=== PATIENT | male | born 1970 | race Caucasian/White ===

== ENCOUNTER 2017-03-09 22:35 | Observation (INO) | payer BC, MEDICAID ==
[~2017-03-09] VITALS: Ht 172.7 cm; Wt 107.0 kg
[2017-03-09] MEDS: NITROGLYCERIN 0.4 MG SL 25 TABS/BTL SL SCH ×2 (04:05→04:31)
[~2017-03-09 22:35] MED LIST: ALUM5LIQ PO; ASPI81TA82 PO; ATOR40TA49 PO; METF500 PO; PERC5TAB12 PO; PROT40TA PO
[2017-03-09 22:38] VITALS: BP 115/73; PULSE 87; RESP 16; TEMP 97.5; O2SAT 98
[2017-03-09] MEDS ORDERED: NITROGLYCERIN 2% OINT 1 GM PACKET TOP ONE (23:00)
[2017-03-09] MEDS ORDERED: SODIUM CHLORIDE 0.9% FLUSH 10 ML FLUSH IVF PRN (23:00)
[2017-03-09 23:05] VITALS: BP 112/75; PULSE 81; RESP 18; O2SAT 98
[2017-03-09] MEDS ORDERED: MAALSUS17 PO (23:09)
[2017-03-09] MEDS ORDERED: METF500T PO (23:09)
[2017-03-09] MEDS ORDERED: BENA25CA4 PO (23:09)
[2017-03-09] MEDS ORDERED: ISOS30TA3 PO (23:09)
[2017-03-09] MEDS ORDERED: PLAV75TA29 PO (23:09)
[2017-03-09] MEDS ORDERED: ROSU40 PO (23:09)
[2017-03-09] MEDS ORDERED: ASPI325T PO (23:09)
[2017-03-09] MEDS ORDERED: CARV6.25 PO (23:09)
[2017-03-09 23:17] LABS: AUTOMATED NEUTROPHIL # 5.5 TH/MM3 (1.8-7.7); BASOPHIL # 0.1 TH/MM3 (0-0.2); BASOPHIL % 1.3 % (0.0-2.0); EOSINOPHIL # 0.4 TH/MM3 (0-0.4); EOSINOPHIL % 3.9 % (0.0-4.0); HEMATOCRIT 46.6 % (39.0-51.0); HEMO FLAGS DIFF FINAL; LYMPH % 29.6 % (9.0-44.0); LYMPHOCYTE # 2.8 TH/MM3 (1.0-4.8); MEAN CELL VOLUME 85.2 FL (80.0-100.0); MEAN CORPUSCULAR HEMOGLOBIN 28.2 PG (27.0-34.0); MEAN CORPUSCULAR HGB CONC 33.1 % (32.0-36.0); MONO % 6.7 % (0.0-8.0); NEUT % 58.5 % (16.0-70.0); PLATELET COUNT 205 TH/MM3 (150-450); RED BLOOD COUNT 5.47 MIL/MM3 (4.50-5.90); RED CELL DISTRIBUTION WIDTH 13.6 % (11.6-17.2); WHITE BLOOD COUNT 9.4 TH/MM3 (4.0-11.0)
--- NOTE | 2017-03-09 23:25 | RADRPT ---
EXAM DATE/TIME: 03/09/2017 23:19 [facility] COMPARISON: CHEST SINGLE AP, October 02, 2015, 16:10. INDICATIONS : Chest pain. MEDICAL HISTORY : None. SURGICAL HISTORY : Stent placement. Defibrillator. ENCOUNTER: Initial ACUITY: 3 days PAIN SCORE: 0/10 LOCATION: Bilateral chest FINDINGS: There is slight cardiomegaly and perivascular pulmonary edema. Focal consolidation is not seen. Left subclavian pacer wire is present with tip in the right ventricle. CONCLUSION: Slight CHF. K. Fabiano Rae MD on March 09, 2017 at 23:22 Board Certified Radiologist. This report was verified electronically.
[2017-03-09] MEDS ORDERED: PANTOPRAZOLE SODIUM 40 MG VIAL IV PUSH ONE (23:30)
--- NOTE | 2017-03-09 23:38 | PD ---
HPI Chief Complaint: Chest Pain Time Seen by Provider: 22:58 Travel History International Travel<30 days: No Contact w/Intl Traveler<30days: No Traveled to known affect area: No History of Present Illness HPI The patient is a 46 year old male who presents to the [facility] emergency department with a history of indigestion like chest pain that he reports began Friday and lasted for approximate 4-5 minutes. The patient reports that the pain recurred on Friday intermittently and then 4 times on today. He reports that each time the chest pain occurs he checks his blood pressure and it is elevated compared to his normal blood pressure. He reports that it is been as high as 129/88. He reports that the pain is in the center of the chest, sometimes on the left side of the chest. He reports that the pain continues to be a burning sensation associated with tightening. He reports that he has had shortness of breath associated with this. He denies having any diaphoresis. He denies having any radiation of pain up into his jaw or arms. He reports that his last cardiac catheterization was in 2014. He reports that Dr. Walker recommended a stent placement, however it was not done at that time. The patient reports that his last cardiac stress test was done 1 year ago. The patient denies any recent fevers, cough, congestion, neck pain, abdominal pain, vomiting, diarrhea, urinary symptoms, or neurologic symptoms. The patient reports that he last moved his bowels earlier today. He denies having any blood in his stool or black or tarry stools. He reports that he has been taking Maalox and Benadryl for his indigestion discomfort, however he reports it has not been helping. The patient reports that his chest pain is alleviated with rest. FOR[facility]LY [facility] Past Medical History Narrative Medical The patient's past medical history is significant for coronary artery disease with prior stent placement, ischemic cardiomyopathy with AICD placement in 2013 , dyslipidemia, hypertension, acid reflux, diabetes mellitus. Hx Anticoagulant Therapy: Yes Arthritis: Yes (HANDS) Blood Disorders: No Heart Rhythm Problems: Yes Cancer: No Cardiac Catheterization: Yes (X2) Cardiovascular Problems: Yes (ID 11/12/13 CARDIAC STENTS/DEFIBRILATOR-PACEMAKER/ CHF) High Cholesterol: Yes Chest Pain: Yes Congestive Heart Failure: Yes Diabetes: Yes (TYPE 2) Patient Takes Glucophage: Yes (03/09/2017 0900) Endocrine: No Gastrointestinal Disorders: Yes (GERD/CONSTIPATION) Genitourinary: No Hepatitis: No Hiatal Hernia: Yes Hypertension: Yes Immune Disorder: No Implanted Vascular Access Dvce: Yes (pacer/defibrillator) Musculoskeletal: Yes (RA) Neurologic: No Psychiatric: No Reproductive: No Respiratory: Yes (SLEEP APNEA-CPAP) Myocardial Infarction: Yes Pneumonia: Yes Sleep Apnea: Yes Thyroid Disease: No Tetanus Vaccination: Unknown Influenza Vaccination: No Past Surgical History Narrative Surgical The patient's past surgical history is significant for an AICD placement, cardiac catheterization with stent placement. Abdominal Surgery: No AICD: Yes (06/27/2014) Body Medical Devices: STENTS X 2 Cardiac Surgery: Yes (PACEMAKER/AICD PLACEMENT, CARDIAC CATHERIZATION X 3 WITH STENTS) Coronary Artery Bypass Graft: No Coronary Stent: Yes (X 2) Ear Surgery: No Endocrine Surgery: No Eye Surgery: No Genitourinary Surgery: No Gynecologic Surgery: No Joint Replacement: No Neurologic Surgery: Yes (SPINAL TAP-SPINAL FLUID LEAK) Oral Surgery: Yes (TEETH EXTRACTIONS) Pacemaker: Yes (BIOTRONIC, DUAL) Thoracic Surgery: No Other Surgery: Yes Family History Family Myocardial Infarction: Yes (FATHER) Social History Alcohol Use: Yes (occassional) Tobacco Use: No (quit September 29, 2016) Substance Use: No Allergies-Medications (Allergen,Severity, Reaction): Coded Allergies: No Known Allergies (Unverified , 11/28/15) Reported Meds & Prescriptions Reported Meds & Active Scripts Active Reported Aspirin 325 Mg Tab 325 Mg PO DAILY Benadryl Allergy (Diphenhydramine HCl) 25 Mg Cap 1 Tab PO DAILY Maalox Maximum Strength Susp (Mag Hydrox/Aluminum Hyd/Simeth) 355 Ml Oral.susp 15 Ml PO QID Isosorbide Mononitrate ER (Isosorbide Mononitrate) 30 Mg Linda 1 Tab PO DAILY Coreg (Carvedilol) 6.25 Mg Tab 6.25 Mg PO BID Crestor (Rosuvastatin Calcium) 40 Mg Tab 40 Mg PO DAILY Metformin (Metformin HCl) 500 Mg Tab 500 Mg PO DAILY With a meal Review of Systems General / Constitutional: No: Fever Eyes: No: Visual changes HENT: No: Headaches Cardiovascular: Positive: Chest Pain or Discomfort, Dyspnea on exertion, No: Diaphoresis Respiratory: Positive: Shortness of Breath Gastrointestinal: Positive: Indigestion, No: Nausea, Vomiting, Diarrhea, Abdominal Pain Genitourinary: No: Dysuria Musculoskeletal: No: Pain Skin: No Rash Neurologic: No: Weakness Psychiatric: No: Depression Endocrine: No: Polydipsia Hematologic/Lymphatic: No: Easy Bruising Physical Exam Narrative General: The patient is well-developed well-nourished male in no acute distress. Head and Neck exam: Head is normocephalic atraumatic. Eyes: EOMI, pupils are equal round and reactive to light. Nose: Midline septum with pink mucous membranes Mouth: Dentition unremarkable. Moist mucus membranes. Posterior oropharynx is not erythematous. No tonsillar hypertrophy. Uvula midline. Airway patent. Neck: No palpable lymphadenopathy. No nuchal rigidity. No thyromegaly. Cardiovascular: Regular rate and rhythm without murmurs, gallops, or rubs. No pulse deficit to the extremities and simultaneous auscultation and palpation of his radial artery. Lungs: Clear to auscultation bilaterally. No wheezes, rhonchi, or rales. Abdomen: Soft, without tenderness to palpation in all 4 quadrants of the abdomen. No guarding, rebound, or rigidity. Normal bowel sounds are audible. No tenderness on palpation of McBurney's point. Extremities: No clubbing, cyanosis, or edema. 2+ pulses in all 4 extremities. No calf tenderness on palpation. Back: No costovertebral angle tenderness to palpation. Neurologic Exam: Grossly nonfocal. Skin Exam: No rash noted. Intact skin that is warm and dry. Data Data Last Documented VS Vital Signs Date Time Temp Pulse Resp B/P Pulse Ox O2 Delivery O2 Flow Rate FiO2 03/10/17 00:36 72 18 95/61 95 Room Air 03/09/17 22:38 97.5 Orders Electrocardiogram (03/09/17 22:58) B-Type Natriuretic Peptide (03/09/17 22:58) Ckmb (Isoenzyme) Profile (03/09/17 22:58) Complete Blood Count With Diff (03/09/17 22:58) Comprehensive Metabolic Panel (03/09/17 22:58) Magnesium (Mg) (03/09/17 22:58) Prothrombin Time / Inr (Pt) (03/09/17 22:58) Act Partial Throm Time (Ptt) (03/09/17 22:58) Troponin I (03/09/17 22:58) Lipase (03/09/17 22:58) Chest, Single Ap (03/09/17 22:58) Ecg Monitoring (03/09/17 22:58) Bilateral Bp Monitoring (03/09/17 22:58) Iv Access Insert/Monitor (03/09/17 22:58) Oximetry (03/09/17 22:58) Oxygen Administration (03/09/17 22:58) Nitroglycerin 2% Oint (Nitroglycerin 2% (03/09/17 23:00) Sodium Chloride 0.9% Flush (Ns Flush) (03/09/17 23:00) Nitroglycerin Sl (Nitrostat Sl) (03/09/17 23:00) Pantoprazole Inj (Protonix Inj) (03/09/17 23:30) Admit Order (Ed Use Only) (03/10/17 01:33) Labs Laboratory Tests Test 03/09/17 23:04 White Blood Count 9.4 TH/MM3 Red Blood Count 5.47 MIL/MM3 Hemoglobin 15.4 GM/DL Hematocrit 46.6 % Mean Corpuscular Volume 85.2 FL Mean Corpuscular Hemoglobin 28.2 PG Mean Corpuscular Hemoglobin 33.1 % Concent Red Cell Distribution Width 13.6 % Platelet Count 205 TH/MM3 Mean Platelet Volume 8.5 FL Neutrophils (%) (Auto) 58.5 % Lymphocytes (%) (Auto) 29.6 % Monocytes (%) (Auto) 6.7 % Eosinophils (%) (Auto) 3.9 % Basophils (%) (Auto) 1.3 % Neutrophils # (Auto) 5.5 TH/MM3 Lymphocytes # (Auto) 2.8 TH/MM3 Monocytes # (Auto) 0.6 TH/MM3 Eosinophils # (Auto) 0.4 TH/MM3 Basophils # (Auto) 0.1 TH/MM3 CBC Comment DIFF FINAL Differential Comment Prothrombin Time 10.6 SEC Prothromb Time International 1.0 RATIO Ratio Activated Partial 26.1 SEC Thromboplast Time B-Type Natriuretic Peptide 295 PG/ML Sodium Level 140 MEQ/L Potassium Level 4.0 MEQ/L Chloride Level 103 MEQ/L Carbon Dioxide Level 28.6 MEQ/L Anion Gap 8 MEQ/L Blood Urea Nitrogen 14 MG/DL Creatinine 1.03 MG/DL Estimat Glomerular Filtration 77 ML/MIN Rate Random Glucose 101 MG/DL Calcium Level 8.8 MG/DL Magnesium Level 2.1 MG/DL Total Bilirubin 0.4 MG/DL Aspartate Amino Transf 18 U/L (AST/SGOT) Alanine Aminotransferase 27 U/L (ALT/SGPT) Alkaline Phosphatase 89 U/L Total Creatine Kinase 70 U/L Troponin I LESS THAN 0.02 NG/ML Total Protein 8.0 GM/DL Albumin 3.9 GM/DL Lipase 185 U/L MDM Medical Decision Making Medical Screen Exam Complete: Yes Emergency Medical Condition: Yes Medical Record Reviewed: Yes Interpretation(s) Last Impressions Myocardial Perfusion Scan Nuc Med 03/10/17 0000 Signed Impressions: Service Date/Time: Friday, March 10, 2017 10:39 - CONCLUSION: 1. Large area of infarct involving the entire septum and anterior wall. No reversible perfusion defect identified. Severely diminished ejection fraction at 19%%. RISK CATEGORY: High (>3%% Annual Mortality Rate) Anuj Garcia MD Chest X-Ray 03/09/17 2258 Signed Impressions: Service Date/Time: Thursday, March 09, 2017 23:19 - CONCLUSION: Slight CHF. K. Fabiano Rae MD Differential Diagnosis Acute coronary syndrome, versus acid reflux, versus pneumothorax, versus pneumonia, versus pleurisy Narrative Course During the course of the patients emergency department visit, the patients history, examination, and differential diagnosis were reviewed with the patient. The patient had IV access obtained and blood work sent for analysis. The patient was placed on a air sampling and monitoring with oximetry and blood pressure monitoring. An EKG was done on arrival. The patient's EKG shows a sinus rhythm heart rate of 81, incomplete right bundle branch block, left anterior fascicular block, no acute ST segment elevation or depression. QRS duration is 117 ms, QTC 421 ms. The patient was initially provided nitroglycerin sublingual every 5 minutes 3 when necessary chest pain, nitroglycerin 1 inch to the chest wall, Protonix 40 mg IV. The patient reports that he took at least 2 adult aspirin earlier today , therefore additional aspirin was not provided at this time. The patients laboratory studies were reviewed and remarkable for a CBC that is within normal limits. CMP is unremarkable, CPK 70, troponin I less than 0.02, BNP 295, lipase 185, PT PTT within normal limits. Radiology studies were reviewed and remarkable for a chest x-ray that shows no acute abnormality. The patients results were discussed with the patient, including the plan of care. I explained that further testing and/ or monitoring is indicated based on the patients history, examination, and/ or laboratory findings. Therefore, I recommended admission for additional evaluation. The patient expressed understanding and was agreeable with this plan. The patient was admitted to the hospital in stable condition and sent to a bed under the care of to the chest pain center. Diagnosis Primary Impression: Chest pain, rule out acute myocardial infarction Admitting Information Admitting Physician Requests: Observation Erin Paez MD Mar 09, 2017 23:38
[2017-03-09 23:39] LABS: APTT (PATIENT) 26.1 SEC (24.3-30.1); PROTHROMBIN TIME - PATIENT 10.6 SEC (9.8-11.6)
[2017-03-09 23:45] LABS: ALT (GPT) 27 U/L (12-78); ANION GAP 8 MEQ/L (5-15); AST (GOT) 18 U/L (15-37); BICARBONATE 28.6 MEQ/L (21.0-32.0); BLOOD UREA NITROGEN 14 MG/DL (7-18); CHLORIDE 103 MEQ/L (98-107); GLOMERULAR FILTRATION RATE 77 ML/MIN (>89); MAGNESIUM 2.1 MG/DL (1.5-2.5); SODIUM (NA) 140 MEQ/L (136-145)
[2017-03-09 23:49] LABS: ALKALINE PHOSPHATASE 89 U/L (45-117); TOTAL BILIRUBIN ADULT 0.4 MG/DL (0.2-1.0)
[2017-03-10] VITALS (8 sets, daily range): BP systolic 86–102; BP diastolic 55–70; PULSE 64–147; RESP 18–20; TEMP 97.6; O2SAT 92–95
[2017-03-10 00:06] LABS: CREATINE KINASE 70 U/L (39-308)
[2017-03-10] MEDS ORDERED: ACETAMINOPHEN 500 MG CPLT PO PRN (02:30)
[2017-03-10] MEDS ORDERED: SODIUM CHLORIDE 0.9% FLUSH 10 ML FLUSH IV FLUSH PRN (02:30)
[2017-03-10 06:11] LABS: CREATINE KINASE 59 U/L (39-308)
[2017-03-10] MEDS ORDERED: PANTOPRAZOLE SOD 40 MG DELAYED RELEASE TAB PO SCH (09:00)
[2017-03-10] MEDS ORDERED: SODIUM CHLORIDE 0.9% FLUSH 10 ML FLUSH IV FLUSH SCH (09:00)
[2017-03-10] MEDS ORDERED: REGADENOSON INJ 0.4 MG/5 ML SYR ONE (11:06)
--- NOTE | 2017-03-10 11:21 | HHI.HP ---
[facility] Primary Care Physician Lance Ortiz MD Chief Complaint Chest pain History of Present Illness This is a 46-year-old male that presents to the ED with history of ischemic cardiomyopathy, CAD having 2 stents. He presents complaining of 4 days of intermittent chest discomfort lasting anywhere from 5-10 minutes. The discomfort can occur with walking and will improve after he stops activity within a few minutes. He at times a short of breath. Denies diaphoresis or nausea. Patient states that he had not been taking his medications but restarted taking them 4 days ago. He states that he last saw his construction project engineer about 3 or 4 months ago. Thinks his last stress test was over a year ago. Upon review records last heart catheterization was in 2013 and a which time there was 20/30 percent in-stent restenosis of the proximal LAD stent. The RCA stent was patent. PdA had 99% blockage which is unchanged from prior. He had an EF of 10-20% and was set up to have a fibular placed. An AICD was implanted May 2014 Review of Systems General: Patient denies fevers, chills recent, and recent travel HEENT: Patient denies headache, sore throat, difficulty swallowing. Cardiovascular: Has the chest discomfort as mentioned above. Denies sensation of heart beating rapidly or irregularly. No syncope. Denies diaphoresis. Respiratory: A time short of breath. Denies inspirational chest discomfort. Denies coughing wheezing or hemoptysis. GI: Patient denies nausea, vomiting, diarrhea, abdominal pain, bloody stools. Musculoskeletal: Patient denies joint pain or edema. Denies calf pain or edema. Neurovascular: Patient denies numbness, tingling, weakness in extremities. Denies headache. Endocrine: Denies polyuria and polydipsia. Hematologic: Denies easy bruising. Skin: Denies rash or itching. Past Family Social History Allergies: Coded Allergies: No Known Allergies (Unverified , 11/28/15) Past Medical History Ischemic cardiomyopathy, CAD with stents, hyperlipidemia, hypertension, diabetes , and GERD. Denies diabetes. Past Surgical History Heart catheterizations with interventions as well as having a heart catheter is a 14 without an intervention. AICD implanted May 2014. Reported Medications Reported Meds & Active Scripts Active Reported Aspirin 325 Mg Tab 325 Mg PO DAILY Benadryl Allergy (Diphenhydramine HCl) 25 Mg Cap 1 Tab PO DAILY Maalox Maximum Strength Susp (Mag Hydrox/Aluminum Hyd/Simeth) 355 Ml Oral.susp 15 Ml PO QID Isosorbide Mononitrate ER (Isosorbide Mononitrate) 30 Mg Linda 1 Tab PO DAILY Coreg (Carvedilol) 6.25 Mg Tab 6.25 Mg PO BID Crestor (Rosuvastatin Calcium) 40 Mg Tab 40 Mg PO DAILY Metformin (Metformin HCl) 500 Mg Tab 500 Mg PO DAILY With a meal Plavix (Clopidogrel Bisulfate) 75 Mg Tab 75 Mg PO DAILY Active Ordered Medications Current Medications Medications (Trade) Dose Ordered Sig/Denice Route Start Time Stop Time Status Last Admin (NS Flush) 2 ml UNSCH PRN IVF 03/09/17 23:00 (NS Flush) 2 ml UNSCH PRN IV FLUSH 03/10/17 02:30 (NS Flush) 2 ml BID IV FLUSH 03/10/17 09:00 (Tylenol) 500 mg Q4H PRN PO 03/10/17 02:30 (Protonix) 40 mg DAILY PO 03/10/17 09:00 Family History There is family history of CAD. Social History Patient quit smoking cigarettes 5 months ago. Has occasional alcohol. Denies illicit drugs. Physical Exam Vital Signs Vital Signs Date Time Temp Pulse Resp B/P Pulse Ox O2 Delivery O2 Flow Rate FiO2 03/10/17 07:58 72 03/10/17 07:54 97.6 147 20 86/55 93 03/10/17 04:02 95 Nasal Cannula 2.00 03/10/17 03:01 64 18 96/62 95 Nasal Cannula 2 03/10/17 01:53 69 18 93/62 95 Room Air 03/10/17 00:36 72 18 95/61 95 Room Air 03/10/17 00:14 76 18 102/70 95 Room Air 03/09/17 23:05 81 18 112/75 98 Room Air 03/09/17 22:59 98 Room Air 03/09/17 22:38 97.5 87 16 115/73 98 Room Air Physical Exam GENERAL: This is a well-nourished, well-developed patient, in no apparent distress. Patient speaks in clear complete sentences. Patient is pleasant. HEENT: Head is atraumatic and normocephalic. Neck is supple without lymphadenopathy and trachea is midline. No JVD or carotid bruits. CARDIOVASCULAR: Regular rate and rhythm without murmurs, gallops, or rubs. RESPIRATORY: Clear to auscultation. Breath sounds equal bilaterally. No wheezes , rales, or rhonchi. Chest wall is nontender. No use of accessory muscles. GASTROINTESTINAL: Abdomen is nontender, nondistended. Abdomen soft. No obvious pulsatile mass or bruit. No CVA tenderness. Strong femoral pulses bilaterally. Normal bowel sounds in all quadrants. MUSCULOSKELETAL: Patient is moving upper and lower extremities freely. No calf tenderness or edema, no Homans sign. Strong pulses in upper and lower extremities. NEUROLOGICAL: Patient is alert and oriented. Cranial nerves 2-12 are grossly intact. No focal deficits and speech is clear. SKIN: No rash and turgor is normal. Laboratory Laboratory Tests Test 03/09/17 03/10/17 03/10/17 23:04 03:00 05:30 White Blood Count 9.4 Red Blood Count 5.47 Hemoglobin 15.4 Hematocrit 46.6 Mean Corpuscular Volume 85.2 Mean Corpuscular Hemoglobin 28.2 Mean Corpuscular Hemoglobin 33.1 Concent Red Cell Distribution Width 13.6 Platelet Count 205 Mean Platelet Volume 8.5 Neutrophils (%) (Auto) 58.5 Lymphocytes (%) (Auto) 29.6 Monocytes (%) (Auto) 6.7 Eosinophils (%) (Auto) 3.9 Basophils (%) (Auto) 1.3 Neutrophils # (Auto) 5.5 Lymphocytes # (Auto) 2.8 Monocytes # (Auto) 0.6 Eosinophils # (Auto) 0.4 Basophils # (Auto) 0.1 CBC Comment DIFF FINAL Differential Comment Prothrombin Time 10.6 Prothromb Time International 1.0 Ratio Activated Partial 26.1 Thromboplast Time B-Type Natriuretic Peptide 295 Sodium Level 140 Potassium Level 4.0 Chloride Level 103 Carbon Dioxide Level 28.6 Anion Gap 8 Blood Urea Nitrogen 14 Creatinine 1.03 Estimat Glomerular Filtration 77 Rate Random Glucose 101 Calcium Level 8.8 Magnesium Level 2.1 Total Bilirubin 0.4 Aspartate Amino Transf 18 (AST/SGOT) Alanine Aminotransferase 27 (ALT/SGPT) Alkaline Phosphatase 89 Total Creatine Kinase 70 56 59 Troponin I LESS THAN 0.02 0.02 LESS THAN 0.02 Total Protein 8.0 Albumin 3.9 Lipase 185 Result Diagram: 03/09/17 2304 03/09/17 2304 Imaging Last 24 hours Impressions Chest X-Ray 03/09/17 3223 Signed Impressions: Service Date/Time: Thursday, March 09, 2017 23:19 - CONCLUSION: Slight CHF. Danny Rae MD Course EKGs have sinus rhythm without significant ST segment depressions or elevations. Assessment and Plan Assessment and Plan * Chest pain: Patient has had serial cardiac enzymes and EKGs for ruling out purposes. He was seen by Dr. Fredy Song of cardiology in the chest pain center and Dr. Song also spoke with Dr. Walker. Patient will have a chemical stress test. Further plan pending the results of his chemical stress test. Patient has been noncompliant with his medications, his medications will be restarted. * Ischemic cardiomyopathy: Patient has an AICD. He should follow-up with his construction project engineer. * Hypertension: Continue current medication. * CAD: This will be reassessed for stress testing. Will resume his medications. * Hyperlipidemia: Continue current medication. Patient is stable this time. He is agreeable to this plan. Marc Victoria Mar 10, 2017 11:21
[2017-03-10] MEDS ORDERED: GLUCAGON 1 MG/ML VIAL IM/SQ PRN (11:30)
[2017-03-10] MEDS ORDERED: DEXTROSE 50% IN WATER 50 ML VIAL(D50) IV PRN (11:30)
[2017-03-10] MEDS ORDERED: AMINOPHYLLINE INJ 250 MG/10 ML VIAL ONE (11:51)
[2017-03-10] MEDS ORDERED: CARVEDILOL 6.25 MG TAB PO SCH (12:00)
[2017-03-10] MEDS ORDERED: ISOSORBIDE MONONITRATE 30 MG TAB PO SCH (12:00)
[2017-03-10] MEDS ORDERED: ASPIRIN 325 MG TAB PO SCH (12:00)
[2017-03-10] MEDS ORDERED: ATORVASTATIN 80 MG TAB PO SCH (13:00)
--- NOTE | 2017-03-10 13:21 | RADRPT ---
EXAM DATE/TIME: 03/10/2017 10:39 [place] Corrected on: March 18, 2017; Added Pain scale score [facility] COMPARISON: No previous studies available for comparison. INDICATIONS : Angina. DOSE: 35 mCi Tc99m Myoview at stress. 11 mCi Tc99m Myoview at rest. 0.4 mg Lexiscan STRESS SYMPTOMS: Dyspnea, chest pain, nausea, headache and neck pain. MEDICATIONS: 1.) 100 mg Aminophylline IV EJECTION FRACTION: 19% MEDICAL HISTORY : Hypercholesterolemia. Hypertension. SURGICAL HISTORY : Coronary artery stent. ENCOUNTER: Initial ACUITY: 1 day PAIN SCALE: 2/10 LOCATION: chest TECHNIQUE: The patient underwent pharmacologic stress with infusion of prescribed dose. Continuous ECG tracing was monitored during stress. Gated SPECT imaging was performed after stress and conventional SPECT i maging was performed at rest. The examination was performed on a SPECT/CT scanner, both attenuation and non-corrected datasets were reviewed. FINDINGS: DISTRIBUTION: The maximum perfused segment at stress is in the lateral wall. PERFUSION STUDY: The exam demonstrates a large, severe, fixed perfusion defect involving the septum and anterior wall. No reversible perfusion defect is identified. The ventricular cavity is dilated. GATED STUDY: The exam demonstrates a severe global hypokinesis. CONCLUSION: 1. Large area of infarct involving the entire septum and anterior wall. No reversible perfusion defec t identified. Severely diminished ejection fraction at 19%. RISK CATEGORY: High (>3% Annual Mortality Rate) Anuj Garcia MD on March 10, 2017 at 13:17 Board Certified Radiologist. This report was verified electronically.
--- NOTE | 2017-03-10 14:00 | HHI.DCPOC ---
Discharge Care Plan Diagnosis: (1) Chest pain (2) Ischemic cardiomyopathy (3) Diabetes mellitus, type II (4) CAD (coronary artery disease) (5) H/O heart artery stent (6) GERD (gastroesophageal reflux disease) (7) Hyperlipidemia (8) Hypertension Goals to Promote Your Health * To prevent worsening of your condition and complications * To maintain your health at the optimal level Directions to Meet Your Goals Take your medications as prescribed Follow your dietary instruction Follow activity as directed Keep your appointments as scheduled Take your immunizations and boosters as scheduled If your symptoms worsen call your PCP, if no PCP go to Urgent Care Center or Emergency Room Smoking is Dangerous to Your Health. Avoid second hand smoke Call the 24-hour hour crisis hotline for domestic abuse at Marc Victoria Mar 10, 2017 14:00
--- NOTE | 2017-03-10 15:29 | EKG ---
Date Performed: 03/10/2017 Time Performed: 05:32:33 PTAGE: 46 years EKG: Sinus rhythm WITH FIRST DEGREE AV BLOCK MARKED LEFT AXIS DEVIATION ABNORMAL ECG PREVIOUS TRACING : 03/09/2017 22.58 Since previous tracing, no significant change noted DOCTOR: Fredy Song Interpretating Date/Time 03/10/2017 15:29:05
--- NOTE | 2017-03-10 15:32 | EKG ---
Date Performed: 03/10/2017 Time Performed: 03:00:17 PTAGE: 46 years EKG: Sinus rhythm LEFT ANTERIOR FASCICULAR BLOCK ABNORMAL ECG PREVIOUS TRACING : 03/09/2017 22.58 Since previous tracing, no significant change noted DOCTOR: Fredy Song Interpretating Date/Time 03/10/2017 15:30:23
--- NOTE | 2017-03-10 15:34 | EKG ---
Date Performed: 03/09/2017 Time Performed: 22:58:17 PTAGE: 46 years EKG: Sinus rhythm POSSIBLE LEFT ATRIAL ENLARGEMENT PATTERN CONSISTENT WITH PULMONARY DISEASE INCOMPLETE RIGHT BUNDLE B RANCH BLOCK LEFT ANTERIOR FASCICULAR BLOCK SEPTAL MYOCARDIAL INFARCTION ABNORMAL ECG PREVIOUS TRACING : 10/03/2015 00.11 Since previous tracing, no significant change noted DOCTOR: Fredy Song Interpretating Date/Time 03/10/2017 15:32:13
--- NOTE | 2017-03-10 15:35 | TR ---
Date Performed: 03/10/2017 Time Performed: 11:28:17 DOCTOR: Fredy Song DRUG LIST: CLINICAL HISTORY: REASON FOR TEST: CHEST PAIN REASON FOR ENDING: OBSERVATION: CONCLUSION: Lexiscan stress test was performed under standard four minute protocol. Radionuclid e was injected one minute prior to ending the test. No electrocardiographic abormalities were present to suggest ischemia. Nuclear imaging and interpretation are pending. COMMENTS:
[2017-03-10] MEDS ORDERED: INSULIN ASPART SUPPLEMENTAL SCALE SQ SCH (16:00)
== END 2017-03-10 14:53 | disposition home or self-care (01) ==
LOC: NEPE 22:35 → NEDA 03-10 01:34 → NEPHCDU 03-10 04:34
PROVIDERS: ADMIT Family Medicine; ATTEND Family Medicine
DX: R07.89 Other chest pain (principal); I25.5 Ischemic cardiomyopathy; I25.10 Atherosclerotic heart disease of native coronary artery without angina pectoris; I45.2 Bifascicular block; E78.5 Hyperlipidemia, unspecified; E11.9 Type 2 diabetes mellitus without complications; E78.00 Pure hypercholesterolemia, unspecified; I11.0 Hypertensive heart disease with heart failure; I50.9 Heart failure, unspecified; I25.2 Old myocardial infarction; K21.9 Gastro-esophageal reflux disease without esophagitis; M19.049 Primary osteoarthritis, unspecified hand; M06.9 Rheumatoid arthritis, unspecified; G47.30 Sleep apnea, unspecified; Z87.891 Personal history of nicotine dependence; Z95.810 Presence of automatic (implantable) cardiac defibrillator; Z95.5 Presence of coronary angioplasty implant and graft; Z79.84 Long term (current) use of oral hypoglycemic drugs; Z95.0 Presence of cardiac pacemaker; Z79.899 Other long term (current) drug therapy; Z79.82 Long term (current) use of aspirin; Z79.01 Long term (current) use of anticoagulants; Z91.14 Patient's other noncompliance with medication regimen
CPT/HCPCS: 71010; 78452; 80053; 82550; 83690; 83735; 83880; 84484; 85025; 85610; 85730; 93005; 93017; 96374; 99285; A9502; C9113; G0378; J0280; J2785

== ENCOUNTER 2018-03-01 18:40 | Emergency (ER) | payer MEDICAID, OTHER ==
[~2018-03-01] VITALS: Ht 193 cm; Wt 113.5 kg
[~2018-03-01 18:40] MED LIST changes: -ALUM5LIQ PO; +ASPI-183 PO; -ASPI81TA82 PO; -ATOR40TA49 PO; +BENA25CA4 PO; +CARV6.25 PO; +ISOS30TA3 PO; +MAALSUS17 PO; -METF500 PO; +METF500T PO; -PERC5TAB12 PO; -PROT40TA PO; +ROSU40 PO
[2018-03-01 19:10] VITALS: BP 106/61; PULSE 95; RESP 18; TEMP 97.6; O2SAT 99
--- NOTE | 2018-03-01 19:22 | PD ---
HPI Chief Complaint: Musculoskeletal Complaint Time Seen by Provider: 19:21 Travel History International Travel<30 days: No Contact w/Intl Traveler<30days: No Traveled to known affect area: No History of Present Illness HPI 47-year-old male came to the emergency room with history of left leg back of his knee pain and swelling. Patient has history of varicose veins on for past 1 week he has noticed pain and swelling in his varicose veins. His primary care asked him to come to the emergency room to get an ultrasound to rule out DVT. Patient says he cannot take any other pain medication except for aspirin and today he took 6 aspirin full-strength for pain relief. Vital signs were relatively stable. No history of shortness of breath or chest pain. Pain has been there persistently but gets worse upon touching the area. No radiation of the pain. PFSH Past Medical History Narrative Medical List of his past medical, surgical, social and family history is reviewed from the nursing note. Hx Anticoagulant Therapy: Yes Arthritis: Yes (HANDS) Blood Disorders: No Heart Rhythm Problems: Yes Cancer: No Cardiac Catheterization: Yes (X2) Cardiovascular Problems: Yes (pacemaker/Defib, OR, CHF, CAD) High Cholesterol: Yes Chest Pain: Yes Congestive Heart Failure: Yes Diabetes: Yes (Metformin) Patient Takes Glucophage: Yes Endocrine: No Gastrointestinal Disorders: Yes (GERD/CONSTIPATION) Genitourinary: No Hepatitis: No Hiatal Hernia: Yes Hypertension: Yes Immune Disorder: No Implanted Vascular Access Dvce: Yes (pacer/defibrillator) Musculoskeletal: Yes (RA) Neurologic: No Psychiatric: No Reproductive: No Respiratory: Yes (SLEEP APNEA-CPAP) Myocardial Infarction: Yes Pneumonia: Yes Sleep Apnea: Yes Thyroid Disease: No Past Surgical History Abdominal Surgery: No AICD: Yes (06/27/2014) Body Medical Devices: STENTS X 2 Cardiac Surgery: Yes (PACEMAKER/AICD PLACEMENT, CARDIAC CATHERIZATION X 3 WITH STENTS) Cholecystectomy: Yes Coronary Artery Bypass Graft: No Coronary Stent: Yes (X 2) Ear Surgery: No Endocrine Surgery: No Eye Surgery: No Genitourinary Surgery: No Gynecologic Surgery: No Joint Replacement: No Neurologic Surgery: Yes (SPINAL TAP-SPINAL FLUID LEAK) Oral Surgery: Yes (TEETH EXTRACTIONS) Pacemaker: Yes (BIOTRONIC, DUAL) Thoracic Surgery: No Other Surgery: Yes Family History Family Myocardial Infarction: Yes (FATHER) Social History Alcohol Use: Yes (occassional) Tobacco Use: No (quit September 29, 2016) Substance Use: No Allergies-Medications (Allergen,Severity, Reaction): Coded Allergies: No Known Allergies (Unverified , 11/28/15) Comments No known allergies. Reported Meds & Prescriptions Reported Meds & Active Scripts Active Reported Aspirin 325 Mg Tab 325 Mg PO DAILY Benadryl Allergy (Diphenhydramine HCl) 25 Mg Cap 1 Tab PO DAILY Maalox Maximum Strength Susp (Mag Hydrox/Aluminum Hyd/Simeth) 355 Ml Oral.susp 15 Ml PO QID Isosorbide Mononitrate ER (Isosorbide Mononitrate) 30 Mg Linda 1 Tab PO DAILY Coreg (Carvedilol) 6.25 Mg Tab 6.25 Mg PO BID Crestor (Rosuvastatin Calcium) 40 Mg Tab 40 Mg PO DAILY Metformin (Metformin HCl) 500 Mg Tab 500 Mg PO DAILY With a meal Narrative Medication List of his home medications reviewed from the nursing note. Review of Systems Except as stated in HPI: all other systems reviewed are Neg Musculoskeletal: Positive: Pain Physical Exam Narrative GENERAL: Awake, alert, mildest SKIN: Focused skin assessment warm/dry. Multiple large bilateral varicose veins of the lower extremity. The left distal femoral area close to the knee has firm swelling within the varicose veins which are tender to touch. Overlying skin is slightly erythematous. This is mobile HEAD: Atraumatic. Normocephalic. EYES: Pupils equal and round. No scleral icterus. No injection or drainage. ENT: No nasal bleeding or discharge. Mucous membranes pink and moist. NECK: Trachea midline. No JVD. CARDIOVASCULAR: Regular rate and rhythm. No murmur appreciated. RESPIRATORY: No accessory muscle use. Clear to auscultation. Breath sounds equal bilaterally. GASTROINTESTINAL: Abdomen soft, non-tender, nondistended. Hepatic and splenic margins not palpable. MUSCULOSKELETAL: No obvious deformities. No clubbing. No cyanosis. No edema. NEUROLOGICAL: Awake and alert. No obvious cranial nerve deficits. Motor grossly within normal limits. Normal speech. PSYCHIATRIC: Appropriate mood and affect; insight and judgment normal. Data Data Last Documented VS Vital Signs Date Time Temp Pulse Resp B/P (MAP) Pulse Ox O2 Delivery O2 Flow Rate FiO2 03/01/18 19:10 97.6 95 18 106/61 (76) 99 Orders Orders Us Leg Venous Doppler (03/01/18 ) Ed Discharge Order (03/01/18 20:46) [facility] Medical Decision Making Medical Screen Exam Complete: Yes Emergency Medical Condition: Yes Medical Record Reviewed: Yes Differential Diagnosis Superficial venous thrombosis, thrombophlebitis Narrative Course 8:51 PM ultrasound of the lower extremity shows superficial venous thrombosis in the greater saphenous vein. Based on this patient does not need to be started on anticoagulant. He will be discharged home with instructions. Verbal instructions is also been given which patient has understood. Procedures EKG Prior to Arrival: No Diagnosis Primary Impression: Acute superficial venous thrombosis of left lower extremity Referrals: Primary Care Physician 3 days Additional Instructions: Continue taking 1 regular strength aspirin a day. Follow-up with your primary care. Your primary care should order an outpatient repeat ultrasound in a week to see if the clot has progressed. Because it is a superficial venous thrombosis and not a deep vein thrombosis you do not require an anticoagulant. Med/Other Pt SpecificInfo: No Change to Meds Disposition: 01 DISCHARGE HOME Condition: Stable Cecilia Berkowitz MD Mar 01, 2018 19:22
--- NOTE | 2018-03-01 20:34 | RADRPT ---
EXAM DATE: 03/01/2018 8:29 PM EDT AGE/SEX: 47 years / Male INDICATIONS: Left leg pain. CLINICAL DATA: This is the patient's initial encounter. Patient reports that signs and symptoms have been present for 4 - 6 days and indicates a pain score of 3/10. MEDICAL/SURGICAL HISTORY: Congestive heart failure. Hypercholesterolemia. Hypertension. [place] ures. Myocardial infarction. Anticoagulant therapy. Pnemonia. Sleep apnea. Hiatal hernia. Arthritis. Diabetes. Pacemaker. Cholecystectomy. Tooth extraction. Spinal tap. Cardiac catheterization. Coron carito artery stent. COMPARISON: No prior [place] exams available for comparison. No external comparison. TECHNIQUE: Venous ultrasound of both lower extremities was performed from the inguinal ligament to t he proximal calf. Real-time, color Doppler and spectral tracing, compression and augmentation techni ques were used. FINDINGS: There is normal compressibility of the deep venous system from the inguinal region to the proximal ca lf. No echogenic clot is seen in the lumen of the common femoral, femoral, popliteal, and posterior tibial veins. There is a normal response of the venous system to proximal and distal augmentation an d respiration. Thrombus is noted within the left greater saphenous vein and varicose veins in the alejandro inity of the upper thigh. CONCLUSION: 1. No evidence of deep venous thrombosis within the left lower extremity. 2. Superficial thrombus within the left greater saphenous vein and adjacent varicose veins within th e upper thigh. Electronically signed by: Tony Milan MD 03/01/2018 8:32 PM EDT
== END 2018-03-01 21:07 | disposition home or self-care (01) ==
LOC: NEPD 18:40
DX: I82.812 Embolism and thrombosis of superficial veins of left lower extremity (principal); M19.049 Primary osteoarthritis, unspecified hand; I11.0 Hypertensive heart disease with heart failure; I50.9 Heart failure, unspecified; E11.9 Type 2 diabetes mellitus without complications; I25.10 Atherosclerotic heart disease of native coronary artery without angina pectoris; E78.00 Pure hypercholesterolemia, unspecified; K21.9 Gastro-esophageal reflux disease without esophagitis; R06.81 Apnea, not elsewhere classified
CPT/HCPCS: 93971

== ENCOUNTER 2018-03-16 11:55 | Inpatient (IN) | payer MEDICARE, OTHER ==
[~2018-03-16] VITALS: Ht 193 cm; Wt 114.7 kg
[2018-03-16 12:10] VITALS: BP 107/65; PULSE 101; RESP 24; TEMP 100.6; O2SAT 96
[2018-03-16] MEDS ORDERED: SODIUM CHLORIDE 0.9% FLUSH 10 ML FLUSH IVF PRN (12:45)
--- NOTE | 2018-03-16 13:19 | RADRPT ---
EXAM DATE: 03/16/2018 1:16 PM EDT AGE/SEX: 47 years / Male INDICATIONS: Chest pain. CLINICAL DATA: This is the patient's initial encounter. Patient reports that signs and symptoms have been present for 3 days and indicates a pain score of 10/10. MEDICAL/SURGICAL HISTORY: Congestive heart failure. Myocardial Infarction. Pacemaker. COMPARISON: [facility], CHEST SINGLE AP, 03/09/2017. . FINDINGS: Single view thorax demonstrates an area of consolidation and infiltrate in the right lung base concer yesenia for pneumonia. The heart is normal in size. The mediastinal contours are within normal limits. The left lung is pau r. Note is made of a transvenous pacer. CONCLUSION: Right basilar infiltrate concerning for pneumonia. This is new compared to a previous dated 03/09/2017 . Electronically signed by: Anuj Garcia MD 03/16/2018 1:18 PM EDT
[2018-03-16 13:23] VITALS: O2SAT 97
[2018-03-16 13:39] LABS: AUTOMATED NEUTROPHIL # 14.1 TH/MM3 (1.8-7.7); BASOPHIL # 0.1 TH/MM3 (0-0.2); BASOPHIL % 0.3 % (0.0-2.0); HEMATOCRIT 39.1 % (39.0-51.0); HEMOGLOBIN 12.9 GM/DL (13.0-17.0); LYMPH % 6.4 % (9.0-44.0); LYMPHOCYTE # 1.1 TH/MM3 (1.0-4.8); MEAN CELL VOLUME 83.6 FL (80.0-100.0); MEAN CORPUSCULAR HEMOGLOBIN 27.6 PG (27.0-34.0); MEAN PLATELET VOLUME 8.1 FL (7.0-11.0); MONO % 8.3 % (0.0-8.0); MONOCYTE # 1.4 TH/MM3 (0-0.9); PLATELET COUNT 207 TH/MM3 (150-450); RED BLOOD COUNT 4.68 MIL/MM3 (4.50-5.90); RED CELL DISTRIBUTION WIDTH 15.9 % (11.6-17.2); WHITE BLOOD COUNT 16.6 TH/MM3 (4.0-11.0)
--- NOTE | 2018-03-16 13:52 | PD ---
HPI . Mid back pain Chief Complaint: Respiratory Symptoms Time Seen by Provider: 12:32 Travel History International Travel<30 days: No Contact w/Intl Traveler<30days: No Traveled to known affect area: No History of Present Illness HPI Patient presents with a chief complaint of mid back pain. He has a history of known degenerative disc disease. He states that he had the acute exacerbation of his chronic pain approximately 3 days ago. The pain has been continuous and is rated 10/10. In addition, the patient is complaining with shortness of breath and hemoptysis. He has a history of ischemic cardiomyopathy with an ejection fraction of 10-20%. He is reportedly on a cardiac transplant list. PFSH Past Medical History Hx Anticoagulant Therapy: Yes Arthritis: Yes (HANDS) Blood Disorders: No Heart Rhythm Problems: Yes Cancer: No Cardiac Catheterization: Yes (X2) Cardiovascular Problems: Yes High Cholesterol: Yes Chest Pain: Yes Congestive Heart Failure: Yes Diabetes: Yes Patient Takes Glucophage: No Endocrine: No Gastrointestinal Disorders: Yes (GERD/CONSTIPATION) Genitourinary: No Hepatitis: No Hiatal Hernia: Yes Hypertension: Yes Immune Disorder: No Implanted Vascular Access Dvce: Yes (pacer/defibrillator) Musculoskeletal: Yes (RA) Neurologic: No Psychiatric: No Reproductive: No Respiratory: Yes (SLEEP APNEA-CPAP) Myocardial Infarction: Yes Pneumonia: Yes Sleep Apnea: Yes Thyroid Disease: No Past Surgical History Abdominal Surgery: No AICD: Yes (06/27/2014) Body Medical Devices: STENTS X 2 Cardiac Surgery: Yes (PACEMAKER/AICD PLACEMENT, CARDIAC CATHERIZATION X 3 WITH STENTS) Cholecystectomy: Yes Coronary Artery Bypass Graft: No Coronary Stent: Yes (X 2) Ear Surgery: No Endocrine Surgery: No Eye Surgery: No Genitourinary Surgery: No Gynecologic Surgery: No Joint Replacement: No Neurologic Surgery: Yes (SPINAL TAP-SPINAL FLUID LEAK) Oral Surgery: Yes (TEETH EXTRACTIONS) Pacemaker: Yes (BIOTRONIC, DUAL) Thoracic Surgery: No Other Surgery: Yes Family History Family Myocardial Infarction: Yes (FATHER) Social History Alcohol Use: Yes (occassional) Tobacco Use: No (quit September 29, 2016) Substance Use: No Allergies-Medications (Allergen,Severity, Reaction): Coded Allergies: No Known Allergies (Unverified , 11/28/15) Reported Meds & Prescriptions Reported Meds & Active Scripts Active Reported Aspirin 325 Mg Tab 325 Mg PO DAILY Benadryl Allergy (Diphenhydramine HCl) 25 Mg Cap 1 Tab PO DAILY Maalox Maximum Strength Susp (Mag Hydrox/Aluminum Hyd/Simeth) 355 Ml Oral.susp 15 Ml PO QID Isosorbide Mononitrate ER (Isosorbide Mononitrate) 30 Mg Linda 1 Tab PO DAILY Coreg (Carvedilol) 6.25 Mg Tab 6.25 Mg PO BID Crestor (Rosuvastatin Calcium) 40 Mg Tab 40 Mg PO DAILY Metformin (Metformin HCl) 500 Mg Tab 500 Mg PO DAILY With a meal Review of Systems Except as stated in HPI: all other systems reviewed are Neg General / Constitutional: No: Fever, Chills Cardiovascular: No: Chest Pain or Discomfort Respiratory: Positive: Shortness of Breath, Hemoptysis Musculoskeletal: Positive: Pain Physical Exam Narrative GENERAL: Patient is sitting on the edge of the bed. He is awake and alert. SKIN: warm/dry. HEAD: Normocephalic. Atraumatic. EYES: Pupils equal and round. Extraocular movements are intact. ENT: Mucous membranes pink and moist. NECK: Supple. Full range of motion without pain.. CARDIOVASCULAR: Regular rate and rhythm. Heart sounds were normal. RESPIRATORY: No accessory muscle use. Clear to auscultation. Breath sounds equal bilaterally. MUSCULOSKELETAL: No obvious deformities. Normal muscle tone. NEUROLOGICAL: Awake and alert. No obvious cranial nerve deficits. Motor grossly within normal limits. Normal speech. PSYCHIATRIC: Appropriate mood and affect; insight and judgment normal. Data Data Last Documented VS Vital Signs Date Time Temp Pulse Resp B/P (MAP) Pulse Ox O2 Delivery O2 Flow Rate FiO2 03/16/18 14:45 105 28 108/70 (83) 97 Nasal Cannula 2.00 03/16/18 12:10 100.6 Orders Orders Complete Blood Count With Diff (03/16/18 12:38) Comprehensive Metabolic Panel (03/16/18 12:38) B-Type Natriuretic Peptide (03/16/18 12:38) Troponin I (03/16/18 12:38) Iv Access Insert/Monitor (03/16/18 12:38) Electrocardiogram (03/16/18 12:38) Ecg Monitoring (03/16/18 12:38) Oximetry (03/16/18 12:38) Oxygen Administration (03/16/18 12:38) Chest, Single Ap (03/16/18 12:38) Sodium Chloride 0.9% Flush (Ns Flush) (03/16/18 12:45) Blood Culture (03/16/18 13:59) Ceftriaxone Inj (Rocephin Inj) (03/16/18 14:00) Lactic Acid (03/16/18 14:01) Azithromycin Inj (Zithromax Inj) (03/16/18 15:15) Admit Order (Ed Use Only) (03/16/18 ) Vital Signs (Adult) Q4H (03/16/18 15:07) Diet Heart Healthy (03/16/18 Dinner) Activity Oob With Assistance (03/16/18 15:07) Notify Dr: Other (03/16/18 15:07) Labs Laboratory Tests Test 03/16/18 13:05 03/16/18 15:02 White Blood Count 16.6 TH/MM3 Red Blood Count 4.68 MIL/MM3 Hemoglobin 12.9 GM/DL Hematocrit 39.1 % Mean Corpuscular Volume 83.6 FL Mean Corpuscular Hemoglobin 27.6 PG Mean Corpuscular Hemoglobin Concent 33.0 % Red Cell Distribution Width 15.9 % Platelet Count 207 TH/MM3 Mean Platelet Volume 8.1 FL Neutrophils (%) (Auto) 85.0 % Lymphocytes (%) (Auto) 6.4 % Monocytes (%) (Auto) 8.3 % Eosinophils (%) (Auto) 0.0 % Basophils (%) (Auto) 0.3 % Neutrophils # (Auto) 14.1 TH/MM3 Lymphocytes # (Auto) 1.1 TH/MM3 Monocytes # (Auto) 1.4 TH/MM3 Eosinophils # (Auto) 0.0 TH/MM3 Basophils # (Auto) 0.1 TH/MM3 CBC Comment DIFF FINAL Differential Comment Blood Urea Nitrogen 17 MG/DL Creatinine 0.95 MG/DL Random Glucose 171 MG/DL Total Protein 7.7 GM/DL Albumin 3.1 GM/DL Calcium Level 8.2 MG/DL Alkaline Phosphatase 78 U/L Aspartate Amino Transf (AST/SGOT) 31 U/L Alanine Aminotransferase (ALT/SGPT) 23 U/L Total Bilirubin 1.8 MG/DL Sodium Level 134 MEQ/L Potassium Level 3.6 MEQ/L Chloride Level 99 MEQ/L Carbon Dioxide Level 23.1 MEQ/L Anion Gap 12 MEQ/L Estimat Glomerular Filtration Rate 85 ML/MIN Troponin I 0.03 NG/ML B-Type Natriuretic Peptide 1423 PG/ML MDM Medical Decision Making Medical Screen Exam Complete: Yes Emergency Medical Condition: Yes Medical Record Reviewed: Yes (PMH CAD, HL, HTN, GIL, DM, tob abuse, chronic back pain, CHF with EF 10-20%) Interpretation(s) EKG shows a sinus rhythm with a rate of 105. He does have a conduction delay. I do not see any acute ischemic changes. Differential Diagnosis Differential diagnosis includes but is not limited to muscular low back pain, DDD, spinal stenosis, epidural abscess, sciatica, kidney infection or stone. Differential diagnosis of dyspnea includes but is not limited to congestive heart failure, pneumonia, wheezing, pneumothorax, pulmonary embolism Narrative Course This patient presents with 2 complaints. He is complaining with acute exacerbation of chronic mid back pain. He is also complaining with dyspnea and hemoptysis. Last Impressions Chest X-Ray 03/16/18 1238 Signed Impressions: CONCLUSION: Right basilar infiltrate concerning for pneumonia. This is new compared to a pr evious dated 03/09/2017. I have added blood cultures and lactic acid. I have ordered Rocephin and Zithromax. CBC & BMP Diagram 03/16/18 13:05 Total Protein 7.7, Albumin 3.1 L, Calcium Level 8.2 L, Alkaline Phosphatase 78, Aspartate Amino Transf (AST/SGOT) 31, Alanine Aminotransferase (ALT/SGPT) 23, Total Bilirubin 1.8 H BNP 1423. This is markedly elevated compared to previous. Sepsis Criteria SIRS Criteria (2 or more): Heart rate over 90, RR > 20 or PaCO2 < 32, WBC > 61676, < 4000 or > 10% bands Sepsis Criteria (SIRS+source): Infect source susp/known Criteria Outcome: Meets SIRS criteria, Meets sepsis criteria Diagnosis Primary Impression: Dyspnea Qualified Codes: R06.00 - Dyspnea, unspecified Additional Impressions: Hemoptysis Cardiac LV ejection fraction 10-20% Chronic back pain Qualified Codes: M54.6 - Pain in thoracic spine; G89.29 - Other chronic pain Pneumonia Qualified Codes: J18.1 - Lobar pneumonia, unspecified organism CHF (congestive heart failure) Qualified Codes: I50.84 - End stage heart failure Admitting Information Admitting Physician Requests: Admit Condition: Stable Oeters,Laura Jack MD Mar 16, 2018 13:52
[2018-03-16 13:59] LABS: ALBUMIN 3.1 GM/DL (3.4-5.0); AST (GOT) 31 U/L (15-37); BICARBONATE 23.1 MEQ/L (21.0-32.0); BLOOD UREA NITROGEN 17 MG/DL (7-18); CALCIUM 8.2 MG/DL (8.5-10.1); CHLORIDE 99 MEQ/L (98-107); CREATININE 0.95 MG/DL (0.60-1.30); GLOMERULAR FILTRATION RATE 85 ML/MIN (>89); GLUCOSE,RANDOM 171 MG/DL (74-106); SODIUM (NA) 134 MEQ/L (136-145)
[2018-03-16] MEDS ORDERED: cefTRIAXone INJ 2,000 MG in SODIUM CHLORIDE 0.9% INJ 100 ML IV ONE (14:00)
[2018-03-16 14:04] LABS: ALKALINE PHOSPHATASE 78 U/L (45-117); ALT (GPT) 23 U/L (12-78); TOTAL BILIRUBIN ADULT 1.8 MG/DL (0.2-1.0); TOTAL PROTEIN 7.7 GM/DL (6.4-8.2); TROPONIN I 0.03 NG/ML (0.02-0.05)
[2018-03-16 14:45] VITALS: BP 108/70; PULSE 105; RESP 28; O2SAT 97
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
[2018-03-16] MEDS ORDERED: AZITHROMYCIN INJ 500 MG in SODIUM CHLOR 0.9% 250 ML INJ 250 ML IV ONE (15:15)
[2018-03-16] MEDS ORDERED: SODIUM CHLOR 0.9% 1000 ML INJ 1,000 ML IV SCH (15:37)
[2018-03-16] MEDS ORDERED: LACTULOSE SYRUP 20 GM/30 ML CUP PO PRN (15:45)
[2018-03-16] MEDS ORDERED: MAGNESIUM HYDROXIDE SUSP 30 ML CUP PO PRN (15:45)
[2018-03-16] MEDS ORDERED: DEXTROSE 50% IN WATER 50 ML VIAL(D50) IV PUSH PRN (15:45)
[2018-03-16] MEDS ORDERED: NALOXONE HCL 0.4 MG/ML AMP IV PUSH PRN (15:45)
[2018-03-16] MEDS ORDERED: BISACODYL 10 MG SUPP RECTAL PRN (15:45)
[2018-03-16] MEDS ORDERED: SODIUM CHLORIDE 0.9% FLUSH 10 ML FLUSH IV FLUSH PRN (15:45)
[2018-03-16] MEDS ORDERED: SENNOSIDES 8.6 MG TAB PO PRN (15:45)
[2018-03-16] MEDS ORDERED: GLUCAGON 1 MG/ML VIAL OTHER PRN (15:45)
--- NOTE | 2018-03-16 16:02 | HHI.FPPN ---
Subjective Remarks Pt. seen and examined, discussed with the medicine team. This is a 47 yo male with extensive cardiac history on transplant list , having had had a severe MA in 2013. Last EF one year ago was 19%. He is having severe cough, right mid-back pain with hemoptysis. His back pain is debilitating, 10:10, unable to do any work or activity. Recent superficial thrombus left greater saphenous vein in early February. Also with mitral and tricuspid insufficiency. See H&P for this admission for additional historical details including past, family, social history and ROS. Objective Vitals Vital Signs Date Time Temp Pulse Resp B/P (MAP) Pulse Ox O2 Delivery O2 Flow Rate FiO2 03/16/18 14:45 105 28 108/70 (83) 97 Nasal Cannula 2.00 03/16/18 13:23 97 Nasal Cannula 2.00 03/16/18 12:42 Room Air 03/16/18 12:10 100.6 101 24 107/65 (79) 96 Result Diagram: 03/16/18 1305 03/16/18 1305 Other Results Laboratory Tests Test 03/16/18 13:05 03/16/18 15:02 White Blood Count 16.6 TH/MM3 Hemoglobin 12.9 GM/DL Neutrophils (%) (Auto) 85.0 % Lymphocytes (%) (Auto) 6.4 % Monocytes (%) (Auto) 8.3 % Neutrophils # (Auto) 14.1 TH/MM3 Monocytes # (Auto) 1.4 TH/MM3 Random Glucose 171 MG/DL Albumin 3.1 GM/DL Calcium Level 8.2 MG/DL Total Bilirubin 1.8 MG/DL Sodium Level 134 MEQ/L Estimat Glomerular Filtration Rate 85 ML/MIN B-Type Natriuretic Peptide 1423 PG/ML EKG sinus tachycardia Meets SIRS and sepsis criteria Imaging Last Impressions Chest X-Ray 03/16/18 1238 Signed Impressions: CONCLUSION: Right basilar infiltrate concerning for pneumonia. This is new compared to a pr evious dated 03/09/2017. Objective Remarks O. CONSTITUTIONAL/GEN: normally nourished, in significant pain, crouching over the guerney.. EYES: conjunctiva normal, PERRLA, EOMI. NECK: supple LUNGS: clear A-P, respiratory effort is normal. CARDIOVASCULAR: Sinus tachycardia without murmur or gallop. No significant edema. GI/ABD: soft without masses, without organomegaly. NEURO: No focal deficits. SKIN: color normal, no rashes noted. HEME/LYMPH: no bruising, petechia or significant adenopathy MUSC: back is normal in appearance. Extremities are normal in appearance. PSYCH/MENTAL STATUS: Alert and oriented x 3. A/P Assessment and Plan Pneumonia, hx severe MA, ASCVD, hemoptysis Attending Attestation Patient seen and examined. Case reviewed and discussed with the resident team. Agree with plan of care as discussed with me and documented in the orders. Neelima Timmons MD Mar 16, 2018 16:02
[2018-03-16] MEDS ORDERED: INSULIN ASPART SUPPLEMENTAL SCALE SQ SCH (17:00)
[2018-03-16] MEDS: ACETAMINOPHEN 1000 MG/100 ML 100 ML IV SCH ×2 (17:16→22:12)
[2018-03-16 19:20] VITALS: BP 93/64; PULSE 94; RESP 18; TEMP 98.1; O2SAT 98
[2018-03-16] MEDS ORDERED: BENZONATATE 100 MG CAP PO PRN (19:30)
[2018-03-16] MEDS ORDERED: RESP: ALBUTEROL 2.5 MG/3 ML NEB (PRN) NEB (19:30)
[2018-03-16 20:00] VITALS: PULSE 99
[2018-03-16] MEDS: RESP: ALBUTEROL 2.5 MG/IPRATROPIUM 0.5 MG NEB (SCH) NEB (20:00)
[2018-03-16] MEDS ORDERED: CARVEDILOL 6.25 MG TAB PO SCH (21:00)
[2018-03-16] MEDS: SUCRALFATE 1 GM TAB PO SCH (22:00)
[2018-03-16] MEDS: SODIUM CHLORIDE 0.9% FLUSH 10 ML FLUSH IV FLUSH SCH (22:12)
[2018-03-16 23:30] VITALS: BP 100/66; PULSE 107; RESP 18; TEMP 97.3; O2SAT 99
[2018-03-17] VITALS (8 sets, daily range): BP systolic 90–99; BP diastolic 58–65; PULSE 74–97; RESP 18–24; TEMP 97.5–97.9; O2SAT 93–98
[2018-03-17] MEDS: ACETAMINOPHEN 1000 MG/100 ML 100 ML IV SCH ×2 (05:00→11:23)
[2018-03-17 06:37] LABS: AUTOMATED NEUTROPHIL # 8.4 TH/MM3 (1.8-7.7); BASOPHIL % 0.4 % (0.0-2.0); EOSINOPHIL % 0.3 % (0.0-4.0); HEMATOCRIT 35.8 % (39.0-51.0); HEMOGLOBIN 11.8 GM/DL (13.0-17.0); LYMPH % 9.6 % (9.0-44.0); MEAN CELL VOLUME 84.9 FL (80.0-100.0); MEAN CORPUSCULAR HEMOGLOBIN 28.1 PG (27.0-34.0); MEAN CORPUSCULAR HGB CONC 33.1 % (32.0-36.0); MEAN PLATELET VOLUME 8.4 FL (7.0-11.0); MONO % 8.2 % (0.0-8.0); MONOCYTE # 0.8 TH/MM3 (0-0.9); NEUT % 81.5 % (16.0-70.0); PLATELET COUNT 180 TH/MM3 (150-450); RED BLOOD COUNT 4.22 MIL/MM3 (4.50-5.90); RED CELL DISTRIBUTION WIDTH 15.8 % (11.6-17.2); WHITE BLOOD COUNT 10.3 TH/MM3 (4.0-11.0)
[2018-03-17 06:46] LABS: BICARBONATE 23.2 MEQ/L (21.0-32.0); CALCIUM 7.9 MG/DL (8.5-10.1); CREATININE 0.8 MG/DL (0.60-1.30)
[2018-03-17] MEDS: RESP: ALBUTEROL 2.5 MG/IPRATROPIUM 0.5 MG NEB (SCH) NEB ×2 (08:21→13:15)
[2018-03-17] MEDS: SUCRALFATE 1 GM TAB PO SCH ×2 (08:59→11:23)
[2018-03-17] MEDS ORDERED: PANTOPRAZOLE SOD 40 MG DELAYED RELEASE TAB PO SCH (09:00)
[2018-03-17] MEDS: SODIUM CHLORIDE 0.9% FLUSH 10 ML FLUSH IV FLUSH SCH (09:00)
[2018-03-17] MEDS ORDERED: ACETAMINOPHEN 325 MG TAB PO PRN (09:00)
[2018-03-17] MEDS ORDERED: SACUBITRIL/VALSARTAN 24 MG-26 MG TAB PO SCH (09:00)
[2018-03-17] MEDS ORDERED: FUROSEMIDE 20 MG TAB PO SCH (09:00)
[2018-03-17] MEDS ORDERED: ASPIRIN 325 MG TAB PO SCH (09:00)
[2018-03-17] MEDS ORDERED: ISOSORBIDE MONONITRATE 30 MG CR TAB (IMDUR) PO SCH (09:00)
--- NOTE | 2018-03-17 09:18 | RADRPT ---
EXAM DATE: 03/17/2018 8:52 AM EDT AGE/SEX: 47 years / Male INDICATIONS: Cough, chest pain. CLINICAL DATA: This is the patient's subsequent encounter. Patient reports that signs and symptoms h ave been present for 3 days and indicates a pain score of 6/10. MEDICAL/SURGICAL HISTORY: . Congestive heart failure. Myocardial Infarction. Coronary artery stent. Pacemaker [place] [facility] [place]. . FINDINGS: Frontal and lateral views of the chest demonstrate a normal-sized cardiac silhouette. Single-lead lef t chest wall cardiac pacing device remains present. EKG lines overlie the patient. There is airspace consolidation in the right mid and lower lung zones that appears to involve the right middle and righ t lower lobes. There is slight blunting of the right costophrenic sulcus suggesting pleural effusion. Left lung demonstrates no abnormality. No pneumothorax is seen. Bones demonstrate no acute finding. CONCLUSION: Right lower lung zone airspace consolidation with small right pleural effusion. Given the history of cough, this is suggestive of a pneumonia. Suggest follow-up imaging following appropriate therapy to confirm resolution. Electronically signed by: Fahad Beckford MD 03/17/2018 9:17 AM EDT
[2018-03-17] MEDS ORDERED: TYLE325T PO (10:42)
[2018-03-17] MEDS ORDERED: GUAI100S5 PO (10:42)
[2018-03-17] MEDS ORDERED: AUGM875T3 PO (10:42)
--- NOTE | 2018-03-17 10:43 | HHI.DCPOC ---
Discharge Care Plan Diagnosis: (1) Sepsis (2) Pneumonia Goals to Promote Your Health * To prevent worsening of your condition and complications * To maintain your health at the optimal level Directions to Meet Your Goals Take your medications as prescribed Follow your dietary instruction Follow activity as directed Keep your appointments as scheduled Take your immunizations and boosters as scheduled If your symptoms worsen call your PCP, if no PCP go to Urgent Care Center or Emergency Room Smoking is Dangerous to Your Health. Avoid second hand smoke Call the 24-hour hour crisis hotline for domestic abuse at Kenzie Chance MD R1 Mar 17, 2018 10:43
--- NOTE | 2018-03-17 13:19 | HHI.FPPN ---
Subjective Remarks Patient seen, examined and discussed with the medicine team. This morning, his pain is primarily from the disc in his back. He gets fairly significant relief with IV Tylenol. He is still coughing and producing a bit of sputum. He does have posttussive emesis at times. He would like to be discharged to go and stretches spine and popped his disc back in. He is using his incentive spirometer fairly effectively. Objective Vitals Vital Signs Date Time Temp Pulse Resp B/P (MAP) Pulse Ox O2 Delivery O2 Flow Rate FiO2 03/17/18 12:07 96 03/17/18 12:00 74 03/17/18 08:00 97.9 88 24 99/65 (76) 97 03/17/18 08:00 89 03/17/18 04:05 97.5 92 18 90/58 (69) 98 03/17/18 04:00 89 03/17/18 00:05 93 Nasal Cannula 3.00 03/17/18 00:00 97 03/16/18 23:30 97.3 107 18 100/66 (77) 99 03/16/18 20:00 99 03/16/18 19:21 03/16/18 19:20 98.1 94 18 93/64 (74) 98 03/16/18 14:45 105 28 108/70 (83) 97 Nasal Cannula 2.00 03/16/18 13:23 97 Nasal Cannula 2.00 03/16/18 13:23 97 Nasal Cannula 2.00 I/O 03/16/18 03/16/18 03/16/18 03/17/18 03/17/18 03/17/18 07:00 15:00 23:00 07:00 15:00 23:00 Intake Total 398 ml 710 ml Output Total 325 ml Balance 398 ml 385 ml Intake Oral 710 ml IV Total 398 ml Output Urine Total 325 ml # Bowel Movements 0 Result Diagram: 03/17/18 0530 03/17/18 0530 Imaging Last Impressions Chest X-Ray 03/17/18 06 Signed Impressions: CONCLUSION: Right lower lung zone airspace consolidation with small right pleural effusion. Given the history of cough, this is suggestive of a pneumonia. Suggest follow- up imaging following appropriate therapy to confirm resolution. Objective Remarks O. CONSTITUTIONAL/GEN: normally nourished, in much less significant pain today , bending forward to relieve the pressure in his back. Minimal coughing. EYES: conjunctiva normal, PERRLA, EOMI. NECK: supple LUNGS: clear A-P, respiratory effort is normal. CARDIOVASCULAR: Sinus tachycardia without murmur or gallop. No significant edema. GI/ABD: soft without masses, without organomegaly. NEURO: No focal deficits. SKIN: color normal, no rashes noted. HEME/LYMPH: no bruising, petechia or significant adenopathy MUSC: back is normal in appearance. Extremities are normal in appearance. PSYCH/MENTAL STATUS: Alert and oriented x 3. A/P Assessment and Plan 47 y/o M w/hx of end-stage CHF admitted for community acquired pneumonia and sepsis. Fever 100.6 on admission, elevated WBC count w/left shift, tachycardic. No QT prolongation on EKG. Plan to start IV antibiotics and supportive care. Blood cx pending. Avoid IVF for now to prevent fluid overload. Plan to re-check CXR tomorrow and assess for improvement. Problem List: (1) Pneumonia ICD Codes: J18.9 - Pneumonia, unspecified organism Status: Acute Plan: Home today on Augmentin and Robitussin-AC Sputum cx if possible He will need follow-up chest x-ray to assure complete resolution, initially obtain in 2 weeks. (2) Sepsis ICD Codes: A41.9 - Sepsis, unspecified organism Status: Resolved Plan: Blood cx, sputum cx ordered CXR PA and LAT today still suggestive of pneumonia Home on Augmentin Robitussin-AC for cough (3) Hemoptysis ICD Codes: R04.2 - Hemoptysis Status: Acute Plan: Diff: pneumonia Honey PRN Monitor for improvement tomorrow (4) Ischemic cardiomyopathy ICD Codes: I25.5 - Ischemic cardiomyopathy Status: Chronic Plan: Controlled. Con't home carvedilol, imduran, entresto, and lasix for tomorrow (5) Hypertension ICD Codes: I10 - Essential (primary) hypertension Status: Chronic Plan: Controlled. Con't home lasix, carvedilol, imduran, and entresto (6) GERD (gastroesophageal reflux disease) ICD Codes: K21.9 - Gastro-esophageal reflux disease without esophagitis Status: Chronic Plan: Controlled. Con't home Protonix (7) Hyperlipidemia ICD Codes: E78.5 - Hyperlipidemia, unspecified Status: Chronic Plan: Hold statin for now as rouvastatin is unavailable (8) FEN Plan: Fluids: Avoid due to fluid overload Electrolytes: none Nutrition: Clear liquid due to coughing and poor appetite DVT prophy: none Problem Qualifiers (1) Pneumonia: Qualified Codes: J18.1 - Lobar pneumonia, unspecified organism (2) Sepsis: Qualified Codes: A41.9 - Sepsis, unspecified organism (3) Hypertension: Qualified Codes: I10 - Essential (primary) hypertension (4) GERD (gastroesophageal reflux disease): Qualified Codes: K21.9 - Gastro-esophageal reflux disease without esophagitis Neelima Timmons MD Mar 17, 2018 13:19
[2018-03-17] MEDS ORDERED: AZITHROMYCIN INJ 500 MG in SODIUM CHLOR 0.9% 250 ML INJ 250 ML IV SCH (14:00)
[2018-03-17] MEDS ORDERED: cefTRIAXone INJ 2,000 MG in SODIUM CHLORIDE 0.9% INJ 100 ML IV SCH (14:00)
--- NOTE | 2018-03-17 17:05 | EKG ---
Date Performed: 03/16/2018 Time Performed: 13:15:25 PTAGE: 47 years EKG: SINUS TACHYCARDIA POSSIBLE LEFT ATRIAL ENLARGEMENT PATTERN CONSISTENT WITH PULMONARY DISEAS E LEFT ANTERIOR FASCICULAR BLOCK NONSPECIFIC T-WAVE ABNORMALITY ABNORMAL ECG PREVIOUS TRACING : 03/10/2017 05.32 Since the previous tracing, no significant change noted DOCTOR: Krystin Renee Interpretating Date/Time 03/17/2018 17:01:59
== END 2018-03-17 14:54 | disposition home or self-care (01) | DRG 871 ==
LOC: NEPC 11:55 → NEDA 15:09 → N04B 19:18
PROVIDERS: ADMIT Family Medicine; ATTEND Family Medicine
DX: A41.9 Sepsis, unspecified organism (principal); J18.9 Pneumonia, unspecified organism; Z76.82 Awaiting organ transplant status; I11.0 Hypertensive heart disease with heart failure; I50.22 Chronic systolic (congestive) heart failure; I50.84 End stage heart failure; R04.2 Hemoptysis; I25.5 Ischemic cardiomyopathy; G89.29 Other chronic pain; M54.6 Pain in thoracic spine; M54.5 Low back pain; K21.9 Gastro-esophageal reflux disease without esophagitis; R00.0 Tachycardia, unspecified; E78.5 Hyperlipidemia, unspecified; I08.1 Rheumatic disorders of both mitral and tricuspid valves; I25.10 Atherosclerotic heart disease of native coronary artery without angina pectoris; E11.9 Type 2 diabetes mellitus without complications; Z95.0 Presence of cardiac pacemaker; Z95.810 Presence of automatic (implantable) cardiac defibrillator; I25.2 Old myocardial infarction; Z95.5 Presence of coronary angioplasty implant and graft; Z87.891 Personal history of nicotine dependence; Z79.84 Long term (current) use of oral hypoglycemic drugs; Z87.01 Personal history of pneumonia (recurrent); Z82.49 Family history of ischemic heart disease and other diseases of the circulatory system
CPT/HCPCS: 71045; 71046; 80048; 80053; 83605; 83880; 84484; 85025; 87040; 87070; 87205; 87449; 93005; 94150; 94640; 94664; J0131; J0456; J0696; J7050; J7613